=== PATIENT | female | born 1985 | race American Indian/Alaskan Native ===

== ENCOUNTER 2017-04-08 02:36 | Emergency (ER) | payer SELFPAY ==
[2017-04-08 04:08] LABS: Basophils % (Auto) 0.5 % (0.0-1.8); Eosinophils % (Auto) 0.9 % (0.0-4.3); Hematocrit 38.6 % (30.3-42.9); Hemoglobin 12.8 gm/dl (10.1-14.3); Mean Corpuscular HGB Conc 33 % (30-34); Mean Corpuscular Hemoglobin 30 pg (28-32); Mean Corpuscular Volume 91 fl (79-97); Platelet Count 285 K/mm3 (140-440); Red Blood Count 4.23 M/mm3 (3.65-5.03); Red Cell Distribution Width 13.6 % (13.2-15.2); White Blood Count 13.8 K/mm3 (4.5-11.0)
[2017-04-08 04:25] LABS: Alanine Aminotransferase 19 units/L (7-56); Albumin 4.2 g/dL (3.9-5); Albumin/Globulin Ratio 1.6 %; Alkaline Phosphatase 48 units/L (35-129); Anion Gap 17 mmol/L; BUN/Creatinine Ratio 25.71; Blood Urea Nitrogen 18 mg/dL (7-17); Carbon Dioxide 25 mmol/L (22-30); Chloride 101.4 mmol/L (98-107); Glucose 95 mg/dL (65-100); Lipase 27 units/L (13-60); Potassium 3.8 mmol/L (3.6-5.0); Sodium 140 mmol/L (137-145); Total Protein 6.9 g/dL (6.3-8.2)
[2017-04-08 04:34] LABS: Bilirubin,Urine NEG (Negative); Blood,Urine LG (Negative); Ketones,Urine TR mg/dL (Negative); Leukocyte Esterase,Urine SM (Negative); Nitrite,Urine NEG (Negative); Urobilinogen,Urine < 2.0 mg/dL (<2.0)
[2017-04-08 04:42] LABS: RBC,Urine > 182.0 /HPF (0.0-6.0); WBC,Urine > 182.0 /HPF (0.0-6.0)
[2017-04-08] MEDS ORDERED: MORPHINE IV ONE ×2 (11:02→13:06)
[2017-04-08] MEDS ORDERED: ZOFRAN IV ONE (11:02)
[2017-04-08] MEDS ORDERED: ROCEPHIN/NS 1 GM/50 ML 1 GM/50 ML BAG IV ONE (11:11)
--- NOTE | 2017-04-08 11:11 | Emergency Department Report ---
HPI - General Chief Complaint: Abdominal Pain Time Seen by Provider: 04/08/17 10:48 - HPI HPI: This is a 31-year-old Afro[place] female presents to the emergency department with complaint of nausea, vomiting, abdominal pain, back pain and hematuria. The patient is from [place] but flew in last night around 8 PM as she is training with [employer]. The patient began having nausea and vomiting at that time and was "feeling off." She went to urinate and began feeling pain in the lower abdomen and low back and started seeing some pink tinged urine. Since that time , every time she urinates, it appears to have more blood in it. She denies any problems with bowel movements or any blood in the stool. She denies being on for close to her menstrual cycle. She denies any past medical history. She has not taken anything for her symptoms prior to presentation. She denies any swelling of the legs, chest pain, shortness of breath, headache, fever. ED Past Medical Hx - Past Medical History Previous Medical History?: No - Social History Smoking Status: Never Smoker Substance Use Type: None - Medications Home Medications: Home Medications Medication Instructions Recorded Confirmed Last Taken Type HYDROcodone/APAP 5-325 [[place] 1 each PO Q6HR PRN #10 tablet 04/08/17 Unknown Rx 5/325] Nitrofurantoin [place]/M-Cryst 100 mg PO Q12HR #14 capsule 04/08/17 Unknown Rx [Macrobid CAP] ED Review of Systems ROS: Stated complaint: ABD PAIN/BLOODY URINE/SOB Other details as noted in HPI Comment: All other systems reviewed and negative Constitutional: denies: chills, fever Eyes: denies: eye pain, eye discharge, vision change ENT: denies: ear pain, throat pain Respiratory: denies: cough, shortness of breath, wheezing Cardiovascular: denies: chest pain, palpitations Gastrointestinal: abdominal pain, nausea, vomiting Genitourinary: dysuria, hematuria Musculoskeletal: back pain. denies: arthralgia Skin: denies: rash, lesions Neurological: denies: headache, weakness, paresthesias Physical Exam - Physical Exam Vital Signs: Vital Signs 04/08/17 04/08/17 04/08/17 03:41 10:12 10:13 Temperature 98.4 F Pulse Rate 91 H 80 82 Respiratory 20 11 L 18 Rate Blood Pressure 141/87 113/68 O2 Sat by Pulse 99 99 99 Oximetry 04/08/17 04/08/17 04/08/17 10:14 10:15 10:16 Temperature Pulse Rate 82 81 78 Respiratory 10 L 7 L 11 L Rate Blood Pressure 115/73 108/66 112/68 O2 Sat by Pulse 99 100 99 Oximetry 04/08/17 04/08/17 04/08/17 10:18 10:20 10:44 Temperature Pulse Rate 81 96 H Respiratory 10 L 20 Rate Blood Pressure 112/70 112/70 O2 Sat by Pulse 99 97 100 Oximetry Physical Exam: GENERAL: The patient is well-developed well-nourished. HEENT: Normocephalic. Atraumatic. Extraocular motions are intact. Patient has moist mucous membranes. Pupils equal reactive to light below. NECK: Supple. Trachea is midline. CHEST/LUNGS: Clear to auscultation. There is no respiratory distress noted. HEART/CARDIOVASCULAR: Regular. There is no tachycardia. There is no gallop rub or murmur. ABDOMEN: Abdomen is soft. Unable to reproduce patient's abdominal tenderness to palpation. Patient has normal bowel sounds. There is no abdominal distention. SKIN: There is no rash. There is no edema. There is no diaphoresis. NEURO: The patient is awake, alert, and oriented. The patient is cooperative. The patient has no focal neurologic deficits. The patient has normal speech. MUSCULOSKELETAL: There is no tenderness or deformity. There is no limitation range of motion. There is no evidence of acute injury. ED Course Vital Signs 04/08/17 04/08/17 04/08/17 03:41 10:12 10:13 Temperature 98.4 F Pulse Rate 91 H 80 82 Respiratory 20 11 L 18 Rate Blood Pressure 141/87 113/68 O2 Sat by Pulse 99 99 99 Oximetry 04/08/17 04/08/17 04/08/17 10:14 10:15 10:16 Temperature Pulse Rate 82 81 78 Respiratory 10 L 7 L 11 L Rate Blood Pressure 115/73 108/66 112/68 O2 Sat by Pulse 99 100 99 Oximetry 04/08/17 04/08/17 04/08/17 10:18 10:20 10:44 Temperature Pulse Rate 81 96 H Respiratory 10 L 20 Rate Blood Pressure 112/70 112/70 O2 Sat by Pulse 99 97 100 Oximetry ED Medical Decision Making - Lab Data Result diagrams: 04/08/17 03:52 04/08/17 03:52 - Radiology Data Radiology results: report reviewed CT SCAN OF THE ABDOMEN AND PELVIS WITH CONTRAST: HISTORY: Abdominal pain. TECHNIQUE: Helical CT in 1.25mm intervals following IV contrast. Sagittal and coronal reconstructions. FINDINGS: The liver is normal in size and is without focal defect. No gallstones or biliary dilatation are noted. The spleen and pancreas demonstrate a normal size and attenuation with no evidence of abnormal mass. The kidneys are normal in size and position with no evidence of hydronephrosis or mass. The adrenal glands are normal. There is no intestinal obstruction or ascites. The appendix is not confidently identified. The abdominal aorta is normal. A 2.5 cm right ovarian cyst is identified. The uterus and left adnexa are unremarkable. There is mild urothelial enhancement within the bladder which may represent a cystitis. There is no evidence of peritoneal air or fluid. There is no evidence of any abnormal masses or fluid collections within the pelvis. No adenopathy is identified. IMPRESSION: 2.5 cm right ovarian cyst. Findings suggestive of cystitis, please correlate with the patient's presentation. Transcribed By: TTR Dictated By: JOSE MANRIQUE JR, MD Electronically Authenticated By: JOSE MANRIQUE JR, MD Signed Date/Time: 04/08/17 1232 - Medical Decision Making 31-year-old female presents to the emergency department with complaint of lower abdominal discomfort, hematuria and some earlier nausea and vomiting. Patient' s vital signs stable throughout her ED course including being afebrile. Patient 's urinalysis shows both a UTI and hematuria. With this finding, along with her abdominal pain, a CT of the abdomen and pelvis with IV contrast was done that shows a right ovarian cyst and cystitis. She was given pain medication and a dose of Rocephin. The rest of her labs are unremarkable. There is no fever, leukocytosis or renal insufficiency. She appears safe for discharge home at this time. She will be given antibiotics and pain medication to take and has been encouraged to see her primary care when she returns back to [place]. Otherwise she will return to the ER with any worsening of her symptoms or any acute distress. - Differential Diagnosis UTI, pyelonephritis, nephrolithiasis, Critical Care Time: No Critical care attestation.: If time is entered above; I have spent that time in minutes in the direct care of this critically ill patient, excluding procedure time. ED Disposition Clinical Impression: Hematuria UTI (urinary tract infection) Qualifiers: Urinary tract infection type: acute cystitis Hematuria presence: with hematuria Qualified Code(s): N30.01 - Acute cystitis with hematuria Abdominal pain Qualifiers: Abdominal location: unspecified location Qualified Code(s): R10.9 - Unspecified abdominal pain Disposition: DISCHARGED TO HOME OR SELFCARE Is pt being admited?: No Condition: Stable Instructions: Abdominal Pain (ED), Urinary Tract Infection in Women (ED), Acute Hematuria (ED) Additional Instructions: Please follow-up with your primary care physician when she returned back home to [place]. Return to the emergency department with any worsening of your symptoms or any acute distress. You've been prescribed a medication that is sedating. Therefore this medication cannot be mixed with alcohol, or taken prior to driving, working, or being responsible for children. Prescriptions: HYDROcodone/APAP 5-325 [[place] 5/325] 1 each PO Q6HR PRN #10 tablet PRN Reason: Pain Nitrofurantoin [place]/M-Cryst [Macrobid CAP] 100 mg PO Q12HR #14 capsule Referrals: PRIMARY CARE, [Primary Care Provider] - 3-5 Days Time of Disposition: 15:12
[2017-04-08] MEDS ORDERED: NACL ONE (12:05)
--- NOTE | 2017-04-08 12:41 | Cat Scan Report ---
CT SCAN OF THE ABDOMEN AND PELVIS WITH CONTRAST: HISTORY: Abdominal pain. TECHNIQUE: Helical CT in 1.25mm intervals following IV contrast. Sagittal and coronal reconstructions. FINDINGS: The liver is normal in size and is without focal defect. No gallstones or biliary dilatation are noted. The spleen and pancreas demonstrate a normal size and attenuation with no evidence of abnormal mass. The kidneys are normal in size and position with no evidence of hydronephrosis or mass. The adrenal glands are normal. There is no intestinal obstruction or ascites. The appendix is not confidently identified. The abdominal aorta is normal. A 2.5 cm right ovarian cyst is identified. The uterus and left adnexa are unremarkable. There is mild urothelial enhancement within the bladder which may represent a cystitis. There is no evidence of peritoneal air or fluid. There is no evidence of any abnormal masses or fluid collections within the pelvis. No adenopathy is identified. IMPRESSION: 2.5 cm right ovarian cyst. Findings suggestive of cystitis, please correlate with the patient's presentation.
[2017-04-08] MEDS ORDERED: MORPHINE ONE (15:49)
== END 2017-04-08 16:03 | disposition home or self-care (01) ==
LOC: ED 02:36
DX: N30.01 Acute cystitis with hematuria (principal)
CPT/HCPCS: 36415; 74177; 80053; 81001; 81025; 83690; 85025; 96365; 96375; 96376; 99284; J0696; J2270; J2405; Q9967